=== PATIENT | male | born 1995 | race African-American/Black ===

== ENCOUNTER 2020-03-01 08:17 | Emergency (ER) | payer BC ==
[~2020-03-01] VITALS: Ht 175.3 cm; Wt 72.6 kg
--- NOTE | 2020-03-01 08:27 | NUR ---
PT BIB SELF C/O SORETHROAT X2 DAYS. PT DENIES FEVER, LOSS OF TASTE OR SMELL, BUT STATES HE HAS SOME MINIMAL COUGH. VS CHECKED. PTS TEMP AT 99.9. AWAITING MD HERNANDEZ
--- NOTE | 2020-03-01 08:32 | NUR ---
PT SEEN BY
[2020-03-01] MEDS ORDERED: DEXAMETHASONE SOD PHOSPHATE 10 MG/ML VIAL ONE (08:39)
[2020-03-01] MEDS: DEXAMETHASONE SOD PHOSPHATE 10 MG/ML VIAL IM ONE (08:47)
[2020-03-01 08:52] VITALS: BP 110/71
--- NOTE | 2020-03-01 08:52 | NUR ---
Patient discharged to home in stable condition. Written and verbal after care instructions given. Patient verbalizes understanding of instruction.
== END 2020-03-01 09:08 | disposition home or self-care (01) ==
LOC: ER 08:21
DX: J02.9 Acute pharyngitis, unspecified (principal); J45.909 Unspecified asthma, uncomplicated
CPT/HCPCS: 87070; 96372; 99283; J1100